=== PATIENT | female | born 1960 | race Two or more races ===

== ENCOUNTER 2021-07-12 14:45 | Inpatient (IN) | payer MEDICAID ==
[~2021-07-12] VITALS: Ht 119.4 cm; Wt 72.0 kg
[2021-07-12] MEDS ORDERED: ONDANSETRON HCL 4 MG/2 ML VIAL IV ONE (15:15)
[2021-07-12] MEDS ORDERED: MORPHINE SULFATE INJECTION 2 MG/ML SYRG IV ONE (15:15)
[2021-07-12 15:29] LABS: Basophils # (auto) 0 10 ^3/uL (0-0.2); Basophils % (auto) 0.2 % (0.0-2.0); Eosinophils # (auto) 0.1 10 ^3/uL (0-0.8); Eosinophils % (auto) 0.9 % (0.0-7.0); Hematocrit 39.3 % (36.0-46.0); Hemoglobin 12.7 g/dL (12.2-16.2); Lymphocytes # (auto) 1.7 10 ^3/uL (0.4-5.4); Lymphocytes % (auto) 25.2 % (10.0-50.0); Mean Corpuscular Hgb Conc. 32.2 g/dL (32.0-36.0); Mean Corpuscular Volume 83.7 fL (80.0-100.0); Monocytes # (auto) 0.3 10 ^3/uL (0-1.3); Neutrophils # (auto) 4.6 10 ^3/uL (1.6-8.6); Neutrophils % (auto) 68.7 % (37.0-80.0); Nucleated Red Blood Cells % 0.1 %; Red Cell Distribution Width 15.9 % (11.8-14.3); White Blood Cell 6.6 10^3/uL (4.4-10.8)
[2021-07-12 15:45] LABS: Albumin 3.6 g/dL (3.4-5.0); BUN/Creatinine Ratio 17.1; Calcium 9.1 mg/dL (8.5-10.1); Potassium 4.4 mmol/L (3.5-5.1)
[2021-07-12 15:51] LABS: Bilirubin, Total 0.8 mg/dL (0.2-1.0); Total Protein 8.4 g/dL (6.4-8.2)
[2021-07-12] MEDS ORDERED: PIPERACILLIN-TAZOB 3.375GM 100 ML IV ONE (16:30)
[2021-07-12] MEDS ORDERED: cefTRIAXone 1GM/50ML D5W 50 ML IV ONE (16:45)
[2021-07-12] MEDS ORDERED: metroNIDAZOLE 500MG/100ML 100 ML IV ONE (16:45)
[2021-07-12] MEDS ORDERED: NITROGLYCERIN 0.4 MG SL TAB SL PRN (17:15)
[2021-07-12] MEDS ORDERED: ONDANSETRON HCL 4 MG/2 ML VIAL IV PRN (17:15)
[2021-07-12] MEDS ORDERED: MORPHINE SULFATE INJECTION 2 MG/ML SYRG IV PRN ×2 (17:15)
[2021-07-12] MEDS ORDERED: DEXTROSE (50%) 50ML SYRG IV PRN (17:15)
[2021-07-12] MEDS: SODIUM CHLORIDE 0.9% 1,000 ML IV SCH (17:33)
[2021-07-12] MEDS: ACCU-CHEK COMFORT CURVE STRIP VI SCH (18:34)
[2021-07-12] MEDS: InsuLIN REG 1unit/0.01ml Soln (100units/ml) SC SCH (18:39)
[2021-07-12 18:51] LABS: INR 1.01 (0.9-1.15); Partial Thromboplastin Time 28.9 sec (23.6-33.0)
[2021-07-12] MEDS: metroNIDAZOLE 500MG/100ML 100 ML IV SCH (22:36)
[2021-07-13] MEDS: SODIUM CHLORIDE 0.9% 1,000 ML IV SCH (01:15)
[2021-07-13] MEDS: ACCU-CHEK COMFORT CURVE STRIP VI SCH ×4 (02:14→17:30)
[2021-07-13] MEDS: InsuLIN REG 1unit/0.01ml Soln (100units/ml) SC SCH ×4 (02:18→18:47)
[2021-07-13] MEDS: metroNIDAZOLE 500MG/100ML 100 ML IV SCH ×3 (06:41→21:23)
[2021-07-13] MEDS ORDERED: BUPIVACAINE W/ EPINEPH 0.25% INJ 50ML MDV ONE (07:15)
[2021-07-13] MEDS ORDERED: ceFAZolin 1GM/50ML 100 ML IV ONE (07:22)
[2021-07-13] MEDS ORDERED: ROCURONIUM 10MG/ML 10ML VIAL IV ONE (07:38)
[2021-07-13] MEDS ORDERED: fentaNYL CITRATE 100 MCG/2 ML VL ONE (07:38)
[2021-07-13] MEDS ORDERED: MIDAZOLAM HCL 2MG/2ML 2ml VIAL (1mg/ml) ONE (07:38)
[2021-07-13] MEDS ORDERED: ONDANSETRON HCL 4 MG/2 ML VIAL ONE (07:39)
[2021-07-13] MEDS ORDERED: LIDOCAINE 2% (LOCAL ANESTH.) PF 5ml SDV ONE (07:39)
[2021-07-13] MEDS ORDERED: PROPOFOL 10 MG/ML 20 ML IV ONE (07:39)
[2021-07-13] MEDS ORDERED: GLYCOPYRROLATE 0.2 MG/ML 1ML VIAL ONE (08:55)
[2021-07-13] MEDS ORDERED: NALOXONE HCL 0.4 MG/ML VIAL ONE (08:58)
[2021-07-13] MEDS: cefTRIAXone 1GM/50ML D5W 50 ML IV SCH (09:00)
[2021-07-13] MEDS ORDERED: SUGAMMADEX 200mg/2ml Vial (100MG/ML) IV ONE (09:06)
[2021-07-13] MEDS ORDERED: ONDANSETRON HCL 4 MG/2 ML VIAL IV PRN (09:30)
[2021-07-13] MEDS: HYDROmorphone HCL 2 MG/ML VL IV PRN ×4 (11:21→11:48)
[2021-07-13 17:00] VITALS: BP 116/64
[2021-07-13] MEDS: SOD CHL 0.45% WITH 20MEQ KCL 1,000 ML IV SCH ×2 (17:30→21:23)
[2021-07-13] MEDS: PANTOPRAZOLE 40 MG/10 ML VIAL INJ IV SCH (18:30)
[2021-07-13] MEDS: MORPHINE SULFATE INJECTION 2 MG/ML SYRG IV PRN (20:51)
[2021-07-13 22:00] VITALS: BP_SYST 106; BP_SYST 112; BP_DIAS 48; BP_DIAS 54
[2021-07-14] MEDS: InsuLIN REG 1unit/0.01ml Soln (100units/ml) SC SCH ×4 (00:16→17:41)
[2021-07-14] MEDS: ACCU-CHEK COMFORT CURVE STRIP VI SCH ×4 (00:16→17:41)
[2021-07-14 04:55] VITALS: BP 108/47
[2021-07-14] MEDS: metroNIDAZOLE 500MG/100ML 100 ML IV SCH ×3 (06:22→22:07)
[2021-07-14 06:34] LABS: Basophils # (auto) 0 10 ^3/uL (0-0.2); Basophils % (auto) 0.1 % (0.0-2.0); Eosinophils # (auto) 0.1 10 ^3/uL (0-0.8); Eosinophils % (auto) 1.7 % (0.0-7.0); Hematocrit 31.7 % (36.0-46.0); Hemoglobin 10.9 g/dL (12.2-16.2); Lymphocytes # (auto) 1.4 10 ^3/uL (0.4-5.4); Lymphocytes % (auto) 29.8 % (10.0-50.0); Mean Corpuscular Hemoglobin 28.5 pg (28.0-32.0); Mean Corpuscular Hgb Conc. 34.2 g/dL (32.0-36.0); Mean Corpuscular Volume 83.3 fL (80.0-100.0); Monocytes # (auto) 0.2 10 ^3/uL (0-1.3); Neutrophils # (auto) 2.9 10 ^3/uL (1.6-8.6); Neutrophils % (auto) 63.4 % (37.0-80.0); Nucleated Red Blood Cells % 0.1 %; Red Blood Cells 3.81 10^6/uL (4.0-5.20); Red Cell Distribution Width 15.8 % (11.8-14.3); White Blood Cell 4.6 10^3/uL (4.4-10.8)
[2021-07-14 06:53] LABS: Albumin 2.7 g/dL (3.4-5.0); Magnesium 1.8 mg/dL (1.6-2.6); Potassium 3.8 mmol/L (3.5-5.1)
[2021-07-14 07:03] LABS: BUN/Creatinine Ratio 13.5; Bilirubin, Total 0.5 mg/dL (0.2-1.0); Calcium 8.1 mg/dL (8.5-10.1); Total Protein 6.5 g/dL (6.4-8.2)
[2021-07-14 09:00] VITALS: BP 121/61
[2021-07-14] MEDS: PANTOPRAZOLE 40 MG/10 ML VIAL INJ IV SCH (09:59)
[2021-07-14] MEDS: cefTRIAXone 1GM/50ML D5W 50 ML IV SCH (09:59)
[2021-07-14] MEDS: MORPHINE SULFATE INJECTION 2 MG/ML SYRG IV PRN ×4 (10:00→22:08)
[2021-07-14] MEDS: SOD CHL 0.45% WITH 20MEQ KCL 1,000 ML IV SCH (11:56)
[2021-07-14 12:33] VITALS: BP 149/64
[2021-07-14] MEDS: ACETAMINOPHEN/CODEINE#3 (300/30mg) TAB PO PRN (15:40)
[2021-07-14 16:44] VITALS: BP 146/70
[2021-07-14 22:00] VITALS: BP 114/57
[2021-07-14] MEDS ORDERED: INSULIN LANTUS (GLARGINE) 1 /0.01ml (100units/ml) SC SCH (22:00)
[2021-07-15] MEDS: ACCU-CHEK COMFORT CURVE STRIP VI SCH ×4 (00:07→18:13)
[2021-07-15] MEDS: InsuLIN REG 1unit/0.01ml Soln (100units/ml) SC SCH ×4 (00:11→18:13)
[2021-07-15] MEDS ORDERED: TEMAZEPAM 15 MG CAP PO ONE (00:45)
[2021-07-15] MEDS: SOD CHL 0.45% WITH 20MEQ KCL 1,000 ML IV SCH (03:09)
[2021-07-15 05:00] VITALS: BP 126/68
[2021-07-15] MEDS: metroNIDAZOLE 500MG/100ML 100 ML IV SCH ×2 (05:39→14:17)
[2021-07-15 05:46] LABS: Hematocrit 32.1 % (36.0-46.0); Hemoglobin 10.7 g/dL (12.2-16.2)
[2021-07-15 06:18] LABS: Potassium 3.6 mmol/L (3.5-5.1)
[2021-07-15 06:20] LABS: Magnesium 1.7 mg/dL (1.6-2.6)
[2021-07-15 09:00] VITALS: BP 131/73
[2021-07-15] MEDS: PANTOPRAZOLE 40 MG/10 ML VIAL INJ IV SCH (09:20)
[2021-07-15] MEDS: cefTRIAXone 1GM/50ML D5W 50 ML IV SCH (09:21)
[2021-07-15] MEDS: ACETAMINOPHEN/CODEINE#3 (300/30mg) TAB PO PRN (09:33)
[2021-07-15] MEDS ORDERED: MAGNESIUM SULFATE 1GM/100ML 100 ML IV ONE (09:45)
[2021-07-15] MEDS ORDERED: METF-370 PO (10:52)
[2021-07-15] MEDS ORDERED: GABA300C10 PO (10:52)
[2021-07-15] MEDS ORDERED: GLIP10TA9 PO (10:52)
[2021-07-15] MEDS ORDERED: SIMV-8 PO (10:52)
[2021-07-15] MEDS ORDERED: LISI2.5T47 PO (10:52)
[2021-07-15 12:37] VITALS: BP 109/51
[2021-07-15] MEDS ORDERED: METR500T PO (15:01)
[2021-07-15] MEDS ORDERED: LEVO500T31 PO (15:01)
[2021-07-15] MEDS ORDERED: DOCU-94 PO (15:09)
[2021-07-15] MEDS ORDERED: MORPHINE SULFATE INJECTION 2 MG/ML SYRG IV PRN (15:15)
[2021-07-15 16:39] VITALS: BP 133/67
[2021-07-15 16:46] VITALS: BP 133/67
== END 2021-07-15 20:13 | disposition home or self-care (01) | DRG 234 ==
LOC: ER 14:45 → TELE 17:02 → TELE-WESTW 07-13 14:35
PROVIDERS: ADMIT Nurse Practitioner Acute Care; ATTEND Internal Medicine
PROC: 0DTJ4ZZ Resection of Appendix, Percutaneous Endoscopic Approach (ICD-10-PCS; principal; 2021-07-13 07:40)
DX: K35.80 Unspecified acute appendicitis (principal); D62 Acute posthemorrhagic anemia; E11.9 Type 2 diabetes mellitus without complications; E66.01 Morbid (severe) obesity due to excess calories; E78.5 Hyperlipidemia, unspecified; I10 Essential (primary) hypertension; Z79.84 Long term (current) use of oral hypoglycemic drugs; Z80.9 Family history of malignant neoplasm, unspecified; Z68.43 Body mass index [BMI] 50.0-59.9, adult; Z20.822 Contact with and (suspected) exposure to COVID-19
CPT/HCPCS: 36415; 71045; 74176; 80053; 80061; 82962; 83036; 83690; 83735; 84132; 84443; 85014; 85018; 85025; 85610; 85730; 86850; 86900; 86901; 87426; 93005; 96365; 96367; 96375; 97163; C9113; G0378; J0690; J0696; J1815; J2001; J2250; J2405; J2543; J2704; J3490